=== PATIENT | male | born 1945 | race Caucasian/White ===

== ENCOUNTER → 2018-01-22 | Outpatient (CLI) | payer MEDICARE, MEDICAID ==
[~2018-01-22] MED LIST: ASPI-1159 PO; ATEN50TA PO; CLOP75TA33 PO; HYDR25TA PO; METF500T4 PO; OMEP20CA10 PO; SIMV80TA70 PO
== END | disposition home or self-care (01) ==
LOC: US 10:37
PROVIDERS: ATTEND Internal Medicine Nephrology
DX: N18.3 Chronic kidney disease, stage 3 (moderate) (principal); N40.0 Benign prostatic hyperplasia without lower urinary tract symptoms; N13.39 Other hydronephrosis
CPT/HCPCS: 76770